=== PATIENT | female | born 2000 | race African-American/Black ===

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

== ENCOUNTER 2022-01-07 06:12 | Emergency (ER) | payer OTHER ==
[2022-01-07 06:56] VITALS: BP 123/81; PULSE 82; BMI 22.4
[2022-01-07 08:53] LABS: HCG,QUALITATIVE URINE Negative
[2022-01-07 08:55] LABS: EPI CELLS 27 /uL (0-25.1); HYALINE CASTS 0 /uL (0-3.1); URINE APPEARANCE CLEAR; URINE BACTERIA 408 /uL (0-1359); URINE BILIRUBIN NEGATIVE (NEGATIVE); URINE COLOR YELLOW; URINE GLUCOSE (UA) NEGATIVE (NEGATIVE); URINE KETONE NEGATIVE (NEGATIVE); URINE LEUK ESTERASE NEGATIVE (NEGATIVE); URINE NITRITE NEGATIVE (NEGATIVE); URINE PROTEIN NEGATIVE (NEGATIVE); URINE RBC 23 /uL (0-23.9); URINE UROBILINOGEN 0.2 mg/dL (0.2-1.0); URINE WBC 16 /uL (0-25.8)
[2022-01-07 10:22] LABS: SYPHILIS W/ RPR CONF NON-REACTIVE (NONREACTIVE)
[2022-01-07 10:50] LABS: HIV INTERPRETATION NEGATIVE (NEGATIVE)
== END 2022-01-07 11:15 | disposition home or self-care (01) ==
LOC: JER 06:12
DX: Z11.3 Encounter for screening for infections with a predominantly sexual mode of transmission (principal); Z32.00 Encounter for pregnancy test, result unknown
CPT/HCPCS: 36415; 81003; 84703; 86780; 87086; 87389; 87491; 87591; 87661; 99283-25

== ENCOUNTER 2022-12-02 17:21 | Emergency (ER) | payer OTHER ==
[2022-12-02 17:24] VITALS: BP 114/67; PULSE 81; RESP 18; TEMP 98.6; BMI 19.7
[2022-12-02 19:35] LABS: EPI CELLS 11 /uL (0-25.1); HYALINE CASTS 0 /uL (0-3.1); URINE APPEARANCE CLEAR; URINE BACTERIA 153 /uL (0-1359); URINE BILIRUBIN NEGATIVE (NEGATIVE); URINE COLOR YELLOW; URINE GLUCOSE (UA) NEGATIVE (NEGATIVE); URINE KETONE TRACE (NEGATIVE); URINE LEUK ESTERASE NEGATIVE (NEGATIVE); URINE NITRITE NEGATIVE (NEGATIVE); URINE PROTEIN NEGATIVE (NEGATIVE); URINE RBC 56 /uL (0-23.9); URINE UROBILINOGEN 0.2 mg/dL (0.2-1.0); URINE WBC 8 /uL (0-25.8)
== END 2022-12-02 22:25 | disposition home or self-care (01) ==
LOC: JER 17:21
DX: O20.9 Hemorrhage in early pregnancy, unspecified (principal); Z3A.01 Less than 8 weeks gestation of pregnancy
CPT/HCPCS: 36415; 76817-TC; 81003; 84702; 87086; 99284-25

== ENCOUNTER 2023-10-08 21:02 | Emergency (ER) | payer OTHER ==
[2023-10-08 21:07] VITALS: BP 127/61; PULSE 89; RESP 18; TEMP 97.7; BMI 21.1
[2023-10-08 22:37] LABS: URINE APPEARANCE CLEAR; URINE BILIRUBIN NEGATIVE (NEGATIVE); URINE COLOR YELLOW; URINE GLUCOSE (UA) NEGATIVE (NEGATIVE); URINE KETONE TRACE (NEGATIVE); URINE LEUK ESTERASE NEGATIVE (NEGATIVE); URINE NITRITE NEGATIVE (NEGATIVE); URINE PROTEIN TRACE (NEGATIVE)
[2023-10-08 22:38] LABS: BASO % 0.3 % (0-2.0); HEMATOCRIT 34.7 % (32.4-45.2); HEMOGLOBIN 11.8 GM/dL (10.7-15.3); LYMPH % 24.7 % (8-40); MCH 30.5 pg (25.7-33.7); MCHC 34.1 g/dl (32.0-36.0); MEAN CELL VOLUME 89.6 fl (80-96); MEAN PLT VOLUME 7.8 fl (7.5-11.1); PLATELET COUNT 334 10^3/uL (134-434); RBC 3.87 M/mm3 (3.60-5.2); RDW 13.6 % (11.6-15.6); WHITE BLOOD COUNT 7.6 K/mm3 (4.0-10.0)
[2023-10-08 23:11] LABS: POTASSIUM 3.6 mmol/L (3.5-5.1)
[2023-10-08 23:12] LABS: CALCIUM 9.2 mg/dL (8.5-10.1)
[2023-10-08 23:14] LABS: ALBUMIN 3.7 g/dl (3.4-5.0); BLOOD UREA NITROGEN 11.8 mg/dL (7-18)
[2023-10-08 23:16] LABS: CREATININE 0.6 mg/dL (0.55-1.3)
[2023-10-08 23:18] LABS: BILIRUBIN,TOTAL 0.4 mg/dL (0.2-1); TOT PROT 7.5 g/dl (6.4-8.2)
== END 2023-10-09 00:28 | disposition home or self-care (01) ==
LOC: JER 21:02
DX: O21.9 Vomiting of pregnancy, unspecified (principal); O26.891 Other specified pregnancy related conditions, first trimester; R10.31 Right lower quadrant pain; R10.32 Left lower quadrant pain; Z3A.10 10 weeks gestation of pregnancy
CPT/HCPCS: 36415; 76801-TC; 80053; 81003; 84702; 85025; 86850; 86900; 86901; 87086; 99284-25

== ENCOUNTER 2024-01-25 18:01 | Emergency (ER) | payer OTHER ==
[2024-01-25 18:11] VITALS: RESP 20; BMI 29.0
[2024-01-25] MEDS ORDERED: ACETAMINOPHEN 500 MG TABLET (FP) ONE (19:44)
[2024-01-25] MEDS ORDERED: DIPHTH,PERTUSS(ACELL),TET 0.5 ML DISP.SYRIN IM ONE (19:45)
[2024-01-25] MEDS: DIPHTH,PERTUSS(ACELL),TET 0.5 ML DISP.SYRIN IM ONE (19:55)
[2024-01-25] MEDS: ACETAMINOPHEN 500 MG TABLET (FP) PO ONE (19:59)
[2024-01-25] MEDS ORDERED: CLINDAMYCIN HCL 150 MG CAPSULE (FP) ONE (20:16)
[2024-01-25] MEDS: CLINDAMYCIN HCL 300 MG CAPSULE PO ONE (20:28)
[2024-01-25 22:15] VITALS: BP 120/75; PULSE 88; TEMP 98.2
== END 2024-01-26 00:50 | disposition home or self-care (01) ==
LOC: JER 18:01
PROC: 3E0234Z Introduction of Serum, Toxoid and Vaccine into Muscle, Percutaneous Approach (ICD-10-PCS; principal; 2024-01-25)
DX: O9A.212 Injury, poisoning and certain other consequences of external causes complicating pregnancy, second trimester (principal); S41.112A Laceration without foreign body of left upper arm, initial encounter; S90.819A Abrasion, unspecified foot, initial encounter; R10.9 Unspecified abdominal pain; W54.0XXA Bitten by dog, initial encounter; Z3A.25 25 weeks gestation of pregnancy; Z23 Encounter for immunization
CPT/HCPCS: 76819-TC; 90715; 99284-25